=== PATIENT | male | born 1955 | race Caucasian/White ===

== ENCOUNTER 2023-12-08 17:32 | Emergency (ER) | payer MEDICARE, SELFPAY ==
[2023-12-08 17:37] VITALS: BP 185/118
[2023-12-08 18:01] LABS: % Basophils 0.6 % (0-2); % Eosinophils 1.4 % (0-6); % Immature Granulocytes 0.4 % (0-0.5); % Lymphocytes 25.2 % (20.5-51.1); % Neutrophils 64.4 % (42.2-75.2); Absolute Eosinophils 0.1 10^3/uL (0-0.7); Absolute Lymphocytes 1.2 10^3/uL (1.2-3.4); Absolute Monocytes 0.4 10^3/uL (0.1-0.6); Absolute Neutrophils 3.1 10^3/uL (1.4-6.5); Hemoglobin 12.7 g/dL (13.0-18.0); Mean Corp Hgb Conc. 35.3 g/dL (33.0-37.0); Mean Corpuscular Hgb 29.7 pg (27.0-31.0); Mean Corpuscular Volume 84.1 fL (80.0-94.0); Mean Platelet Volume 10.7 fL (7.4-10.4); Nucleated Red Blood Cells % 0 % (-); Platelet Count 247 10^3/uL (130-400); Red Blood Cell Count 4.28 10^6/uL (4.70-6.10); Red Cell Dist. Width 12.6 % (11.5-14.5); White Blood Cell Count 4.9 10^3/uL (4.8-10.8)
[2023-12-08 18:18] LABS: ALT (SGPT) 17 U/L (0-50); AST (SGOT) 27 U/L (17-59); Albumin 4.1 g/dl (3.5-5.0); Alkaline Phosphatase 53 U/L (38-126); Blood Urea Nitrogen 21 mg/dl (9-20); Calcium 9.6 mg/dl (8.4-10.2); Carbon Dioxide 25 mmol/L (22-30); Chloride 103 mmol/L (98-107); Glucose 134 mg/dl (70-99); Potassium 3.6 mmol/L (3.5-5.1); Sodium 139 mmol/L (135-145); Total Bilirubin 0.8 mg/dl (0.2-1.3); Total Protein 6.8 g/dl (6.3-8.2); eGFR > 60.00
[2023-12-08 18:21] VITALS: BP 168/98
[2023-12-08 18:30] VITALS: BP 179/94
--- NOTE | 2023-12-08 18:46 | ED.GENMED ---
History of Present Illness
<Miguelina Butcher PA-C - Last Filed: 12/09/23 11:09>
General
Chief Complaint: Dizziness
Source: patient
Exam Limitations: none
Time Seen by Provider: 12/08/23 18:40
Nursing documentation reviewed up to this point in time: agreed with
Travel History
Have you had any contact with someone who has COVID-19?: No
Do you have any symptoms of coronavirus? Fever > 100 degrees, chills, cough, shortness of breath, sore throat, loss of taste or smell, muscle aches, or headache?: No
History of Present Illness
History of Present Illness:
This is a 68-year-old male with a past medical history of hypertension, CAD, hyperlipidemia, opioid use disorder, who is presenting to the emergency department with complaints of dizziness and hypertension for the past 2 days. Patient states that
yesterday, he was standing in his house when he was hit with sudden episode of dizziness and had to sit down. Patient states that he has had similar episodes in the past, and his PCP is aware of this issue, however he has not had an episode this
severe before. He states that his blood pressures were low a few weeks ago, and so his PCP decreased his amlodipine to 5 mg once daily instead of 10 mg once daily. This did not relieve his symptoms. Patient states that he felt this way and
subsequently checked his blood pressure which was in the 200s. He states that he checked it multiple times today and is remaining 200 systolically. Patient describes this sensation as trouble walking, and almost a feeling of dysequilibrium.
Patient denies visual changes, double vision, numbness or tingling other than his chronic cervical radiculopathy on right side, syncopal episodes, nausea or vomiting, chest pain, shortness of breath. He states that his symptoms ultimately resolved
when he remains still for period time.
Past History
<Miguelina Butcher PA-C - Last Filed: 12/09/23 11:09>
Past History
ED Past Medical History: CAD, HTN and Other (chronic pain)
Patient has exhibited threatening behavior?: No
Social History
Tobacco: Non-smoker
Alcohol: Occasional
Drug: None
Personal:
Living: with family
Family History
Family History: Other
Review of Systems
<Miguelina Butcher PA-C - Last Filed: 12/09/23 11:09>
Review of Systems
All Other Systems: ROS reviewed and negative except as documented in HPI and ROS
Phy Exam
<Miguelina Butcher PA-C - Last Filed: 12/09/23 11:09>
Physical Exam
Physical Exam:
Vitals: Patient is HTN
General: Patient is well-appearing, in no acute distress
Skin: Warm and dry, no rashes or lesions
HEENT: No nystagmus, pupils equal round reactive
Cardiac: regular rate and rhythm
Pulm: Normal respiratory effort
Neurological: Patient awake and alert. Cranial nerves II to XII intact. No involuntary movements noted. Strength 5 out of 5 in bilateral upper and lower extremities. Pibwjx-dc-ekgr testing, emnw-ns-feiq testing intact. Gait normal. Negative
pronator drift.
Psychiatric: Good insight and judgment intact. Appropriate behavior.
Course
<Miguelina Butcher PA-C - Last Filed: 12/09/23 11:09>
Orders/Labs/Results
Orders:
Orders
12/08/23 17:40
Electrocardiogram (*1) Urgent
Reason for Study: Vertigo / Dizzy
EKG- Treatment ONCE
12/08/23 17:50
CMP [Comprehensive Metabolic Panel] Urgent
Complete Blood Count/With Diff Urgent
12/08/23 19:35
Amlodipine [Norvasc] 5 mg PO NOW STA
12/08/23 19:45
Terazosin [Hytrin] 5 mg PO NOW STA
12/08/23 19:56
MRI Brain [MR Brain Without Contrast] Urgent
Comment:
Reason For Exam: dysequilibrium
Recent pill cam endoscopy?: No
Abnormal Lab Results
12/08/23
17:50
RBC 4.28 L 10^6/uL
(4.70-6.10)
Hgb 12.7 L g/dL
(13.0-18.0)
Hct 36.0 L %
(39.0-52.0)
MPV 10.7 H fL
(7.4-10.4)
BUN 21 H mg/dl
(9-20)
Glucose 134 H mg/dl
(70-99)
12/08/23 17:50
12/08/23 17:50
Vital Signs
Initial and Last Documented VS:
Initial Vital Signs
Temp Pulse Resp BP Pulse Ox
98.6 F 73 16 185/118 96
12/08/23 17:37 12/08/23 17:37 12/08/23 17:37 12/08/23 17:37 12/08/23 17:37
Last Documented Vital Signs
Temp Pulse Resp BP Pulse Ox
98.6 F 57 16 158/94 97
12/08/23 17:37 12/08/23 20:02 12/08/23 18:21 12/08/23 21:30 12/08/23 18:21
<Christopher Gates MD - Last Filed: 12/08/23 21:50>
Orders/Labs/Results
Orders:
Orders
12/08/23 17:40
Electrocardiogram (*1) Urgent
Reason for Study: Vertigo / Dizzy
EKG- Treatment ONCE
12/08/23 17:50
CMP [Comprehensive Metabolic Panel] Urgent
Complete Blood Count/With Diff Urgent
12/08/23 19:35
Amlodipine [Norvasc] 5 mg PO NOW STA
12/08/23 19:45
Terazosin [Hytrin] 5 mg PO NOW STA
12/08/23 19:56
MRI Brain [MR Brain Without Contrast] Urgent
Comment:
Reason For Exam: dysequilibrium
Recent pill cam endoscopy?: No
Abnormal Lab Results
12/08/23
17:50
RBC 4.28 L 10^6/uL
(4.70-6.10)
Hgb 12.7 L g/dL
(13.0-18.0)
Hct 36.0 L %
(39.0-52.0)
MPV 10.7 H fL
(7.4-10.4)
BUN 21 H mg/dl
(9-20)
Glucose 134 H mg/dl
(70-99)
12/08/23 17:50
12/08/23 17:50
Vital Signs
Initial and Last Documented VS:
Initial Vital Signs
Temp Pulse Resp BP Pulse Ox
98.6 F 73 16 185/118 96
12/08/23 17:37 12/08/23 17:37 12/08/23 17:37 12/08/23 17:37 12/08/23 17:37
Last Documented Vital Signs
Temp Pulse Resp BP Pulse Ox
98.6 F 57 16 158/94 97
12/08/23 17:37 12/08/23 20:02 12/08/23 18:21 12/08/23 21:30 12/08/23 18:21
Latonialt;Miguelina Butcher PA-C - Last Filed: 12/09/23 11:09>
MDM/Problems Addressed
Differential Diagnosis Includes:
Differentials include BPPV, posterior circulation stroke, parkinsonian disorder,, functional neurologic disorder, electrolyte derangement, hypoglycemia, multiple sclerosis
MDM/Problems Addressed:
dizziness
Chronic conditions affecting care: HTN, CAD and Arrhythmia
Acute Exacerbation and/or Progression of Chronic Illness: HTN
<Miguelina Butcher PA-C - Last Filed: 12/09/23 11:09>
*Pulse Oximetry
Patient hypoxic: no
*Critical Care Note
Total Time (30-74mins, 75-104mins- exclusive of procedures): Not Applicable
Data Reviewed
Review of Other/Old Records Reveals: Records (Reviewed echocardiogram from 10/09/2023 with an EF of 57%, reviewed ER physician documentation from 08/08/2021, reviewed ER physician documentation from 05/29/2020)
Source: patient
Further Testing Considered But Not Given:
Dr. Gates spoke to cardiology, will obtain plain brain MRI
<Miguelina Butcher PA-C - Last Filed: 12/09/23 11:09>
Patient Management
Escalation/DeEscalation of care consider admission/obs:
68-year-old male with past medical history of CAD, hypertension, hyperlipidemia Emergency Department today with dizziness x 2 days. He has had multiple episodes of this in the past. His vitals demonstrate hypertension. He did not take his
nighttime blood pressure medications. His neurological exam is unremarkable. We will give him his nighttime medications, and obtain brain MRI. Will transfer care to Dr. Gates, please see attending note.
<Christopher Gates MD - Last Filed: 12/08/23 21:50>
Update Note
Update Note:
Blood pressure 158/94. Medically stable and nontoxic. Discharged to follow-up.
ED Attending Note
<Miguelina Butcher PA-C - Last Filed: 12/09/23 11:09>
-
Portions of this chart may have been created with voice recognition software.� Occasional wrong word or��sound alike� substitutions may have occurred due to the inherent limitations of voice recognition software.
<Christopher Gates MD - Last Filed: 12/08/23 21:50>
ED Attending Note
Patient seen and examined by attending physician: Yes
I performed the substantive portion of visit, reviewed & personally made and approve the management plan that is documented in note by myself or ZABRINA.: Yes
ED Attending Note:
68-year-old male complaining of dizziness. On or off for months. Seen by the primary physician who lowered his amlodipine dose. No chest pain shortness of breath headaches or other neurologic symptoms.
Worried today because his blood pressure was elevated.
GENERAL: Alert and oriented in no apparent distress
EYE: Orbits normal.
NECK: Supple
CARDIAC: Regular rate and rhythm without any obvious murmurs.
LUNGS: Clear breath sounds,normal
ABDOMEN: Soft, without focal tenderness or distention
NEUROLOGICAL: Alert and oriented , speech normal. Cranial nerves II through XII intact. Tnqfji-kp-[id number] normal. Gait normal. Negative Romberg.
SKIN: Warm and dry
PSYCH: Normal and appropriate interaction.
Patient was not orthostatic. From a hypertension standpoint he probably should stay on his 10 mg dose of amlodipine. Highly doubt acute CVA. He said the symptoms on or off for months. Neurologic exam is normal.
Discharge Plan
Departure
Patient Disposition: Home (Routine Discharge)
Date of Disposition: 12/08/23
Time of Disposition: 21:49
Patient with high blood pressure during this ER visit?: Yes
Discharge Problem:
Dizziness
Instructions: Dizziness, Nonvertigo, (DC), BLOOD PRESSURE
Prescriptions:
No Action
lisinopril 30 MG tablet
20 mg PO DAILY
aspirin 325 MG tablet
81 mg PO DAILY
mwjnnnnhqaez-bedhwpkt-vlnojc [Centrum Silver] 1 EACH tablet
1 tab PO DAILY
Amlodipine
10 mg .Route DAILY
pantoprazole 40 MG tablet,delayed release (DR/EC)
40 mg PO DAILY
fenofibrate micronized 130 MG capsule
135 mg PO DAILY
quetiapine 400 MG tablet extended release 24 hr
400 mg PO DAILY
Inderal (Regular Release): Mg
40 mg .Route DAILY
Metformin HCl
500 mg .Route DAILY
Rosuvastatin Calcium
40 mg .Route DAILY
Terazosin
5 mg .Route DAILY
Wellbutrin Regular Release:
200 mg .Route DAILY
buprenorphine HCl 8 MG tablet, sublingual
8 mg sublingual DAILY 4 Days Qty: 8 0RF
Rx Instructions:
Take one Tab daily. If needed, can take 2 Tabs
buprenorphine HCl 8 MG tablet, sublingual
16 mg sublingual DAILY Qty: 20 0RF
Referrals:
Cornelia Shaffer MD [Family Provider] - Follow up in 2-3 days
Yaron Tyler MD [Active] - Next open appointment
Activity Restrictions/Additional Instructions:
As discussed, to consider going back to your higher dose of amlodipine
Interventions
Interventions:
*Risk Screen - Suicide Last Done: 12/08/23 18:20
*General Assessment Last Done: 12/08/23 17:37
*Neglect/Abuse Screening Last Done: 12/08/23 18:20
ED- Fall Risk Assessment Last Done: 12/08/23 21:55
*ED COVID-19 Vaccine History Last Done: 12/08/23 17:37
*Nursing Disposition Last Done: 12/08/23 21:55
ED- Neurological Assessment Last Done: 12/08/23 18:20
ED- Cardiac Assessment Last Done: 12/08/23 21:55
Discharge Date and Time
Discharge Date/Time: 12/08/23 21:56
[2023-12-08] MEDS: NORVASC 5 MG PO (20:02)
[2023-12-08] MEDS: HYTRIN 5 MG PO (20:02)
[2023-12-08 21:30] VITALS: BP 158/94
== END 2023-12-08 21:56 | disposition home or self-care (01) ==
LOC: EMR 17:32
PROVIDERS: Emergency Medicine; EMERGENCY PHYSICIAN Emergency Medicine; FAMILY PHYSICIAN Internal Medicine
DX: R42 Dizziness and giddiness (principal); R26.2 Difficulty in walking, not elsewhere classified; I10 Essential (primary) hypertension; I25.10 Atherosclerotic heart disease of native coronary artery without angina pectoris; E78.5 Hyperlipidemia, unspecified
CPT/HCPCS: 99285; 70551; 80053; 85025; 93005

== ENCOUNTER 2024-06-30 10:41 | Inpatient (IN) | payer MEDICARE, SELFPAY ==
[2024-06-30] VITALS (21 sets, daily range): BP systolic 145–182; BP diastolic 85–106; BMI 24.0
[2024-06-30] MEDS: SKELAXIN 800 MG PO ×2 (11:11→18:02)
[2024-06-30] MEDS: CELEBREX 200 MG PO (11:12)
[2024-06-30] MEDS: TYLENOL 1000 MG PO ×2 (11:12→17:15)
[2024-06-30] MEDS: LYRICA 150 MG PO (11:12)
[2024-06-30] MEDS: NORMOSOL-R/PLASMALYTE-A 1000 IV ×2 (11:14→16:57)
[2024-06-30 13:16] LABS: Glycohemoglobin (HgbA1c) 5.7 % (4.0-5.6)
--- NOTE | 2024-06-30 13:39 | W.DS.TRANS ---
DC Summary - Clubhouse Attendant
-
Discharge Instructions:
Sleep Apnea Risk Intermediate
Discharge Diagnosis/Procedures C7-T1 robyn-lami
Diet As tolerated
Activity No strenuous activity
Driving Restrictions No driving
Instructions:
Stand-Alone Forms: Faruqi Cervical Spine DC Instr
Faruqi Lumbar Spine DC Instr
Changes to Home Medications: Yes
Discharge Medications:
DC Medications w/original date entered in [employer]
pantoprazole 40 mg tablet,delayed release 40 mg PO DAILY 08/02/21
amlodipine 10 mg tablet 10 mg PO DAILY 06/25/24
aspirin 81 mg capsule 81 mg PO DAILY 06/25/24
buprenorphine 12 mg-naloxone 3 mg sublingual film (Suboxone) 1 film buccal Q24H 06/25/24
bupropion HCl 200 mg tablet,12 hr sustained-release (Wellbutrin SR) 200 mg PO Q12H 06/25/24
fenofibric acid (choline) 135 mg capsule,delayed release 135 mg PO DAILY 06/25/24
lisinopril 40 mg tablet 40 mg PO DAILY 06/25/24
multivitamin 1 tab PO DAILY 06/25/24
propranolol 160 mg capsule,24 hr,extended release 160 mg PO DAILY 06/25/24
quetiapine 400 mg tablet (Seroquel) 400 mg PO HS 06/25/24
rosuvastatin 40 mg tablet 40 mg PO DAILY 06/25/24
terazosin 5 mg capsule 5 mg PO HS 06/25/24
Saccharomyces boulardii 250 mg capsule (Florastor) 250 mg PO BID #1 cap 06/30/24
acetaminophen 325 mg capsule (Tylenol) 650 mg (2 x 325 mg) PO QID #2 caps 06/30/24
cephalexin 500 mg capsule 500 mg PO QID infection prevention #20 caps 06/30/24
dexamethasone 4 mg tablet 4 mg PO BID inflammation #6 tabs 06/30/24
docusate sodium 100 mg capsule (Colace) 100 mg PO BID stool softner #1 cap 06/30/24
gabapentin 300 mg capsule 300 mg PO HS sleep/pain #10 caps 06/30/24
hydromorphone 2 mg tablet 2 - 4 mg (1 - 2 x 2 mg) PO Q6H PRN 1 tab moderate pain, 2 severe #10 tabs 06/30/24
magnesium hydroxide 400 mg/5 mL oral suspension (Milk of Magnesia) 30 ml PO HS PRN Constipation #1 mL 06/30/24
sennosides 8.6 mg tablet (Senokot) 17.2 mg (2 x 8.6 mg) PO BID laxative #2 tabs 06/30/24
Home Medication Changes
cephalexin 500 mg capsule 500 mg PO QID� infection prevention #20 caps 06/30/24�
dexamethasone 4 mg tablet 4 mg PO BID inflammation #6 tabs 06/30/24�
gabapentin 300 mg capsule 300 mg PO HS sleep/pain #10 caps 06/30/24�
hydromorphone 2 mg tablet 2 - 4 mg (1 - 2 x 2 mg) PO Q6H PRN 1 tab moderate pain, 2 severe #10 tabs 06/30/24�
Pending Results: No
[2024-06-30] MEDS: DILAUDID 0.5 MG IV ×5 (16:00→16:33)
--- NOTE | 2024-06-30 17:49 | PTCARENOTE ---
Addendum [id number] Upon arrival to PACU anoop reported 'severe pain' #10/10 .upon awakening. Was medicated as ordered and pain still not improving (takes subutex @ home). Reached out to Dr Charlton and will cont with PACU protocol. RN spoke with
pharmacy and had medication times readjusted, allowing scheduled pain meds to be given in conjunction with PACU orders. Patient consistently reports pain now #9/10 but resting comfortably in bed. Patient reports this is 'barely tolerable'. [place]
text to Eun Salas and we will give skelaxin/lyrica early as well as give dilaudid 4 MG. Report given to EMERGENCY VETERINARIAN and I called report to floor RN ZHANE.
[2024-06-30] MEDS: DILAUDID PO (17:55)
[2024-06-30] MEDS: DILAUDID 4 MG PO (18:00)
[2024-06-30] MEDS: LYRICA 75 MG PO (18:01)
--- NOTE | 2024-06-30 18:24 | PTCARENOTE ---
one time meds given to pt as ordered, pt unable to void, bladder not distended, pt has no urge to void, sent to floor
--- NOTE | 2024-06-30 18:41 | PTCARENOTE ---
Received patient from PACU via bed in stable condition. Cervical collar in place. Dressing to upper back/lower neck C/D/I. Bp elevated and has been in PACU. Patient placed on tele. Sinus tach. Will continue to monitor. Patient DTV.
[2024-06-30] MEDS: ANCEF 5 IV (20:56)
[2024-06-30] MEDS: FLUSH (NSS) 3 FLUSH IV (20:57)
[2024-06-30] MEDS: DECADRON 6 MG IV (20:58)
[2024-06-30] MEDS: COLACE 100 MG PO (21:01)
[2024-06-30] MEDS: WELLBUTRIN SR (12 hour sustained release) 200 MG PO (21:01)
[2024-06-30] MEDS: SENOKOT 17.2 MG PO (21:01)
[2024-06-30] MEDS: DILAUDID 2 MG PO (22:08)
[2024-06-30] MEDS: HYTRIN 5 MG PO (22:08)
[2024-06-30] MEDS: SEROQUEL 400 MG PO (22:09)
[2024-07-01] MEDS: TYLENOL PO (00:29)
[2024-07-01] MEDS: NORMOSOL-R/PLASMALYTE-A 1000 IV (02:12)
[2024-07-01 03:00] VITALS: BP 160/90
[2024-07-01] MEDS: DECADRON 6 MG IV ×2 (03:49→11:31)
[2024-07-01] MEDS: ANCEF 5 IV (03:49)
[2024-07-01] MEDS: FLUSH (NSS) 3 FLUSH IV (03:50)
[2024-07-01] MEDS: DILAUDID 4 MG PO ×2 (04:03→11:31)
[2024-07-01] MEDS: TYLENOL 1000 MG PO ×2 (06:27→11:30)
[2024-07-01 06:28] LABS: Hematocrit 31.8 % (39.0-52.0); Hemoglobin 11.1 g/dL (13.0-18.0)
[2024-07-01 06:49] LABS: Blood Urea Nitrogen 15 mg/dl (9-20); Calcium 9.3 mg/dl (8.4-10.2); Carbon Dioxide 24 mmol/L (22-30); Chloride 107 mmol/L (98-107); Estimated Creatinine Clearance 107 ml/min; Glucose 178 mg/dl (70-99); Potassium 3.8 mmol/L (3.5-5.1); Sodium 142 mmol/L (135-145); eGFR > 60.00
[2024-07-01 07:00] VITALS: BP 161/98
--- NOTE | 2024-07-01 07:59 | W.DS.TRANS ---
DC Summary - Painter Hand
-
Discharge Instructions:
Sleep Apnea Risk Intermediate
Discharge Diagnosis/Procedures C7-T1 robyn-lami
Diet As tolerated
Activity No strenuous activity
Driving Restrictions No driving
Instructions:
Stand-Alone Forms: Faruqi Cervical Spine DC Instr
Faruqi Lumbar Spine DC Instr
Changes to Home Medications: No
Discharge Medications:
DC Medications w/original date entered in [employer]
pantoprazole 40 mg tablet,delayed release 40 mg PO DAILY 08/02/21
amlodipine 10 mg tablet 10 mg PO DAILY 06/25/24
aspirin 81 mg capsule 81 mg PO DAILY 06/25/24
buprenorphine 12 mg-naloxone 3 mg sublingual film (Suboxone) 1 film buccal Q24H 06/25/24
bupropion HCl 200 mg tablet,12 hr sustained-release (Wellbutrin SR) 200 mg PO Q12H 06/25/24
fenofibric acid (choline) 135 mg capsule,delayed release 135 mg PO DAILY 06/25/24
lisinopril 40 mg tablet 40 mg PO DAILY 06/25/24
multivitamin 1 tab PO DAILY 06/25/24
propranolol 160 mg capsule,24 hr,extended release 160 mg PO DAILY 06/25/24
quetiapine 400 mg tablet (Seroquel) 400 mg PO HS 06/25/24
rosuvastatin 40 mg tablet 40 mg PO DAILY 06/25/24
terazosin 5 mg capsule 5 mg PO HS 06/25/24
Saccharomyces boulardii 250 mg capsule (Florastor) 250 mg PO BID #1 cap 06/30/24
acetaminophen 325 mg capsule (Tylenol) 650 mg (2 x 325 mg) PO QID #2 caps 06/30/24
cephalexin 500 mg capsule 500 mg PO QID infection prevention #20 caps 06/30/24
dexamethasone 4 mg tablet 4 mg PO BID inflammation #6 tabs 06/30/24
docusate sodium 100 mg capsule (Colace) 100 mg PO BID stool softner #1 cap 06/30/24
gabapentin 300 mg capsule 300 mg PO HS sleep/pain #10 caps 06/30/24
hydromorphone 2 mg tablet 2 - 4 mg (1 - 2 x 2 mg) PO Q6H PRN 1 tab moderate pain, 2 severe #10 tabs 06/30/24
magnesium hydroxide 400 mg/5 mL oral suspension (Milk of Magnesia) 30 ml PO HS PRN Constipation #1 mL 06/30/24
sennosides 8.6 mg tablet (Senokot) 17.2 mg (2 x 8.6 mg) PO BID laxative #2 tabs 06/30/24
Home Medication Changes
Pending Results: No
--- NOTE | 2024-07-01 07:59 | W.PN.SP ---
Today's Communication / Plan
-
s/p lami fusion
Check Path
D/c
Subjective / Objective
Subjective Data
PT doin well
Neck pain
NO increase in weakness
Objective Data
Vital Signs
Temp Pulse Resp BP Pulse Ox
98.2 F 102 16 161/98 98
07/01/24 07:00 07/01/24 07:00 07/01/24 07:00 07/01/24 07:00 07/01/24 07:00
Intake and Output
06/30/24 07/01/24 07/02/24
06:59 06:59 06:59
Intake Total 460 / 460
Output Total 700 / 700
Balance -240 / -240
Intake:
Oral fluids 60 / 60
IV fluids (Total) 400 / 400
Normosol 400 / 400
Output:
Urine, Voided 700 / 700
Other:
Number of approximated MODERATE 1
amounts of urine
Number of approximated LARGE 1
amounts of urine
Lab Data
07/01/24 06:10
07/01/24 06:10
Physical Exam
-
Stable Right UE
[2024-07-01] MEDS: COLACE 100 MG PO (08:25)
[2024-07-01] MEDS: CRESTOR 40 MG PO (08:26)
[2024-07-01] MEDS: DILAUDID 2 MG PO (08:26)
[2024-07-01] MEDS: INDERAL LA 160 MG PO (08:26)
[2024-07-01] MEDS: LYRICA 75 MG PO (08:27)
[2024-07-01] MEDS: PROTONIX 40 MG PO (08:27)
[2024-07-01] MEDS: SKELAXIN 800 MG PO (08:28)
[2024-07-01] MEDS: SENOKOT 17.2 MG PO (08:28)
[2024-07-01] MEDS: WELLBUTRIN SR (12 hour sustained release) 200 MG PO (08:28)
[2024-07-01 11:00] VITALS: BP 151/79
--- NOTE | 2024-07-01 11:10 | W.PN.ORTHO ---
Today's Communication / Plan
-
d/c
Assessment
.
Distal Motor Intact: Yes
Dressing:
Clean, dry and intact.
Plan
.
Surgery / Date: R C7-T1 hemilami cyst excision psf Dr Maldonado 07/01/24
Activity:
Out of bed.
PT/OT
Discharge Plan: Home w/ Outpatient PT
Subjective
.
.:
Patient resting comfortably.
Vital Signs and Labs
.
Vital Signs and Labs:
Lab Results
07/01/24 06:10
07/01/24 06:10
Temp Pulse Resp BP Pulse Ox
98.2 F 102 16 161/98 98
07/01/24 07:00 07/01/24 08:26 07/01/24 07:00 07/01/24 08:26 07/01/24 07:00
Physical Exam
-
HEENT: No pallor, cyanosis, or jaundice. Throat clear.
NECK: Supple. No JVD.
RESPIRATORY: Lungs clear to auscultation.
CVS: S1, S2 normal. RRR.� No murmur, rub or gallop.
ABDOMEN: Soft, non-tender. No distension. BS+/normal.
EXTREMITIES: strength equal, no calf pain with palpation
AUTOMOTIVE GENERAL SALES MANAGER: AOx3. No focal deficits. senior interaction designer grossly intact
[2024-07-01] MEDS: FLUSH (NSS) 2 FLUSH IV (11:32)
[2024-07-01] MEDS: NORMOSOL-R/PLASMALYTE-A IV (12:46)
--- NOTE | 2024-07-01 14:39 | CM ---
met with patient at bedside.patient lives with in house with no laurie,his bed and bath is on the frist level.he amb i and is I with his adl.
pcp is dr yanet daniel and he uses [facility] in [place].he has never had a vn or been to ip rehab.p patoient i
patient is sp c7-t1 robyn lami.he has a cervical collar placed.he is stable for dc home with op physical therapy.
== END 2024-07-01 13:01 | disposition home or self-care (01) | DRG 472 ==
LOC: 2 SOUTH 10:41
PROVIDERS: Physician Assistant Medical; ADMITTING PHYSICIAN Orthopaedic Surgery Orthopaedic Surgery of the Spine
PROC: 0RG40K1 Fusion of Cervicothoracic Vertebral Joint with Nonautologous Tissue Substitute, Posterior Approach, Posterior Column, Open Approach (ICD-10-PCS; 2024-06-30)
PROC: 01N10ZZ Release Cervical Nerve, Open Approach (ICD-10-PCS; 2024-06-30)
DX: M48.03 Spinal stenosis, cervicothoracic region (principal); F32.0 Major depressive disorder, single episode, mild; M71.38 Other bursal cyst, other site; M54.12 Radiculopathy, cervical region; I10 Essential (primary) hypertension; I25.10 Atherosclerotic heart disease of native coronary artery without angina pectoris; I25.5 Ischemic cardiomyopathy; E29.1 Testicular hypofunction; R73.03 Prediabetes; G25.0 Essential tremor; F11.90 Opioid use, unspecified, uncomplicated; I25.2 Old myocardial infarction; Z79.82 Long term (current) use of aspirin; Z79.899 Other long term (current) drug therapy; Z95.5 Presence of coronary angioplasty implant and graft
CPT/HCPCS: 88304; 88311; 72020; 80048; 83036; 85014; 85018; 86850; 86900; 86901; 87070; 97162; 97166; 97535; C1713

== ENCOUNTER 2024-09-12 14:27 | Emergency (ER) | payer MEDICARE, SELFPAY ==
[2024-09-12 14:30] VITALS: BP 172/109
--- NOTE | 2024-09-12 14:54 | ED.GENMED ---
History of Present Illness
General
Chief Complaint: Dehydration Symptoms
Source: patient
Exam Limitations: none
Time Seen by Provider: 09/12/24 14:53
Nursing documentation reviewed up to this point in time: agreed with
History of Present Illness
History of Present Illness:
69-year-old male with a past medical history of opioid use disorder, CAD, hypertension, hyperlipidemia presents to the emergency department today with concerns of racing thoughts as well as dehydration. This has been going on for the past week.
Patient reports that a week ago, his left him and since then he has had persistent anxiety, palpitations, racing thoughts. Patient states that his appetite has decreased and he went to urgent care for the symptoms today and was told that he
appeared very dehydrated and was advised to report to the emergency department. Patient denies abdominal pain, nausea, vomiting. Patient denies diarrhea, constipation. Patient denies any suicidal ideation or any thoughts of harming self. Patient
denies any homicidal ideation. Patient denies visual auditory hallucinations. Patient does have a history of depression does take Wellbutrin.
Past History
Past History
ED Past Medical History: CAD, HTN and Other (chronic pain)
Patient has exhibited threatening behavior?: No
Social History
Tobacco: Non-smoker
Alcohol: Occasional
Drug: None
Personal:
Living: with family
Family History
Family History: Other
Review of Systems
Review of Systems
All Other Systems: ROS reviewed and negative except as documented in HPI and ROS
Phy Exam
Physical Exam
Physical Exam:
General: Patient is well appearing and in no acute distress; non-toxic
Skin: Warm and dry, no rashes or lesions
Head: Normocephalic, atraumatic
Eyes: Sclera non-icteric. EOMs intact.
Mouth: Mucous membranes are moist
Cardiac: Regular rate and rhythm, no murmur
Pulm: Normal respiratory effort, no wheezes, rales, rhonchi
Abdomen: No abdominal tenderness to palpation
Neuro: CN II-XII intact, no focal neurologic deficits.
Psychiatric: Appropriate mood and affect. Patient denies SI, HI, visual auditory hallucinations.
Course
Orders/Labs/Results
Orders:
Orders
09/12/24 15:22
Electrocardiogram (*1) Urgent
Reason for Study: Palpitations
EKG- Treatment ONCE
09/12/24 15:31
Complete Blood Count/With Diff Urgent
Comprehensive Metabolic Panel Urgent
09/12/24 16:09
HydrOXYZINE [Atarax] 25 mg PO NOW STA
Lorazepam [Ativan] 1 mg PO NOW STA
09/12/24 17:12
Lorazepam [Ativan] 0.5 mg PO NOW STA
Abnormal Lab Results
09/12/24
15:31
RBC 4.38 L 10^6/uL
(4.70-6.10)
Hgb 12.8 L g/dL
(13.0-18.0)
Hct 37.3 L %
(39.0-52.0)
Absolute Lymphs (auto) 1.0 L 10^3/uL
(1.2-3.4)
Neutrophils % 75.4 H %
(42.2-75.2)
Lymphocytes % 15.8 L %
(20.5-51.1)
Potassium 3.2 L mmol/L
(3.5-5.1)
BUN 22 H mg/dl
(9-20)
Glucose 117 H mg/dl
(70-99)
09/12/24 15:31
09/12/24 15:31
Vital Signs
Initial and Last Documented VS:
Initial Vital Signs
Temp Pulse Resp BP Pulse Ox
97.8 F 85 16 172/109 86
09/12/24 14:30 09/12/24 14:30 09/12/24 14:30 09/12/24 14:30 09/12/24 14:30
Last Documented Vital Signs
Temp Pulse Resp BP Pulse Ox
97.8 F 63 13 177/96 93
09/12/24 14:30 09/12/24 17:00 09/12/24 17:00 09/12/24 17:00 09/12/24 17:00
MDM/Problems Addressed
Differential Diagnosis Includes:
ddx include RENÉE, electrolyte derangement, depressive episode, panic attack
MDM/Problems Addressed:
69-year-old male with a past medical history of opioid use disorder, CAD, hypertension, hyperlipidemia presents to the emergency department today with concerns of racing thoughts as well as dehydration. This has been going on for the past week
since his left him. Patient has no abdominal pain, nausea, vomiting, diarrhea. He has no suicidal homicidal ideation. On exam, he is well-appearing, no acute distress, his heart is regular rate and rhythm. His EKG shows no arrhythmia that
would make me concerned about his complaint of palpitations. His CBC and CMP are unremarkable. Discussed findings with patient. Patient is okay with not getting IV fluids at this time. Patient states that because of a problem with his , he
is very anxious. Did offer crisis services to patient, patient declining at this time, however he was very anxious in the emergency department and he was given Ativan and hydroxyzine in the emergency department, patient states that he will get a
ride home considering he was given these medications. He found him normal relief with these medications. Did discuss follow-up with PCP regarding further management of the his anxiety.
Chronic conditions affecting care:
n/a
Acute Exacerbation and/or Progression of Chronic Illness:
n/a
*Pulse Oximetry
Patient hypoxic: no
*EKG
Interpreted by ED Provider?: Yes
Interpretation: normal
Heart Rate: 64
Rate: normal
Rhythm: sinus
Interval: normal interval
*Critical Care Note
Total Time (30-74mins, 75-104mins- exclusive of procedures): Not Applicable
Data Reviewed
Review of Other/Old Records Reveals: Records (Reviewed discharge summary from 07/01/2024, patient admitted for cervical myelopathy)
Prescriptions/Medications Considered But Not Given:
n/a
Further Testing Considered But Not Given:
n/a
Update Note
Update Note:
4:35 pm-- Patient noes minimal improvement with ativan and hydro
ED Attending Note
-
Portions of this chart may have been created with voice recognition software.� Occasional wrong word or��sound alike� substitutions may have occurred due to the inherent limitations of voice recognition software.
Discharge Plan
Departure
Patient Disposition: Home (Routine Discharge)
Date of Disposition: 09/12/24
Time of Disposition: 16:51
Patient with high blood pressure during this ER visit?: Yes
Condition: Good
Discharge Problem:
Decrease in appetite, Anxiety
Instructions: Anxiety, Adult ED, BLOOD PRESSURE
Prescriptions:
No Action
pantoprazole 40 MG tablet,delayed release (DR/EC)
40 mg PO DAILY
terazosin 5 mg Capsule
5 mg PO HS
propranolol 160 mg Capsule,Extended Release 24 Hr
160 mg PO DAILY
amlodipine 10 mg Tablet
10 mg PO DAILY
lisinopril 40 mg Tablet
40 mg PO DAILY
bupropion HCl [Wellbutrin SR] 200 mg Tablet Sustained-Release 12 Hr
200 mg PO Q12H
rosuvastatin 40 mg Tablet
40 mg PO DAILY
quetiapine [Seroquel] 400 mg Tablet
400 mg PO HS
fenofibric acid (choline) 135 mg Capsule,Delayed Release(Dr/Ec)
135 mg PO DAILY
aspirin 81 mg Capsule
81 mg PO DAILY
multivitamin Tablet
1 tab PO DAILY
buprenorphine-naloxone [Suboxone] 12-3 mg Film
1 film BUCCAL Q24H
cephalexin 500 mg capsule
500 mg PO QID Qty: 20 0RF
docusate sodium [Colace] 100 mg capsule
100 mg PO BID Qty: 1 0RF
dexamethasone 4 mg tablet
4 mg PO BID Qty: 6 0RF
Rx Instructions:
take with food
post-op use only
Saccharomyces boulardii [Florastor] 250 mg capsule
250 mg PO BID Qty: 1 0RF
hydromorphone 2 mg tablet
2 - 4 mg PO Q6H PRN (Reason: 1 tab moderate pain, 2 severe) Qty: 10 0RF
Rx Instructions:
Dx orthopedic surgery
Ongoing therapy
gabapentin 300 mg capsule
300 mg PO HS Qty: 10 0RF
magnesium hydroxide [Milk of Magnesia] 400 mg/5 mL suspension
30 ml PO HS PRN (Reason: Constipation) Qty: 1 0RF
sennosides [Senokot] 8.6 mg tablet
17.2 mg PO BID Qty: 2 0RF
acetaminophen [Tylenol] 325 mg capsule
650 mg PO QID Qty: 2 0RF
Referrals:
Enzo Cheng MD [Active] - Call in 1-3 days for appt
Tucker Cedillo MD [Family Provider] -
Activity Restrictions/Additional Instructions:
Your potassium was slightly low today at 3.2, please have this rechecked with your primary when you see them in follow up.
Please return to the emergency department should you experience in tractable nausea or vomiting, fevers or chills, chest pain, shortness of breath, suicidal thoughts, syncopal episodes, or any other signs or symptoms worrisome to you.
Please return to the emergency department should you seek help from crisis.
Please follow up with your PCP should you have ongoing anxious thoughts. We have also provided referral for psychiatry.
Interventions
Interventions:
*Risk Screen - Suicide Last Done: 09/12/24 14:30
*General Assessment Last Done: 09/12/24 14:30
*Neglect/Abuse Screening Last Done: 09/12/24 14:30
ED- Fall Risk Assessment Last Done: 09/12/24 15:33
*ED COVID-19 Vaccine History Last Done: 09/12/24 15:33
*Nursing Disposition Last Done: 09/12/24 17:33
ED- Cardiac Assessment Last Done: 09/12/24 15:34
ED- Neurological Assessment Last Done: 09/12/24 15:34
ED- Pulmonary Assessment Last Done: 09/12/24 15:34
Discharge Date and Time
Discharge Date/Time: 09/12/24 17:35
Print Language: INDONESIAN
[2024-09-12 15:27] VITALS: BP 170/102
[2024-09-12 15:33] VITALS: BMI 22.5
[2024-09-12 15:38] LABS: % Basophils 0.5 % (0-2); % Eosinophils 0.2 % (0-6); % Immature Granulocytes 0.5 % (0-0.5); % Lymphocytes 15.8 % (20.5-51.1); % Monocytes 7.6 % (1.7-9.3); % Neutrophils 75.4 % (42.2-75.2); Absolute Monocytes 0.5 10^3/uL (0.1-0.6); Hematocrit 37.3 % (39.0-52.0); Hemoglobin 12.8 g/dL (13.0-18.0); Mean Corp Hgb Conc. 34.3 g/dL (33.0-37.0); Mean Corpuscular Hgb 29.2 pg (27.0-31.0); Mean Corpuscular Volume 85.2 fL (80.0-94.0); Mean Platelet Volume 10.3 fL (7.4-10.4); Nucleated Red Blood Cells % 0 % (-); Platelet Count 243 10^3/uL (130-400); Red Blood Cell Count 4.38 10^6/uL (4.70-6.10); Red Cell Dist. Width 13.2 % (11.5-14.5); White Blood Cell Count 6.6 10^3/uL (4.8-10.8)
[2024-09-12 15:57] LABS: ALT (SGPT) 17 U/L (0-50); AST (SGOT) 26 U/L (17-59); Albumin 4.5 g/dl (3.5-5.0); Alkaline Phosphatase 65 U/L (38-126); Blood Urea Nitrogen 22 mg/dl (9-20); Calcium 9.7 mg/dl (8.4-10.2); Carbon Dioxide 27 mmol/L (22-30); Chloride 103 mmol/L (98-107); Estimated Creatinine Clearance 72 ml/min; Glucose 117 mg/dl (70-99); Potassium 3.2 mmol/L (3.5-5.1); Sodium 141 mmol/L (135-145); Total Bilirubin 0.8 mg/dl (0.2-1.3); Total Protein 7.1 g/dl (6.3-8.2); eGFR > 60.00
[2024-09-12 16:00] VITALS: BP 169/102
[2024-09-12] MEDS: ATIVAN 1 MG PO (16:18)
[2024-09-12] MEDS: ATARAX 25 MG PO (16:18)
[2024-09-12 17:00] VITALS: BP 177/96
[2024-09-12] MEDS: ATIVAN 0.5 MG PO (17:14)
== END 2024-09-12 17:35 | disposition home or self-care (01) ==
LOC: EMR 14:27
PROVIDERS: Physician Assistant; EMERGENCY PHYSICIAN Emergency Medicine; FAMILY PHYSICIAN Internal Medicine
DX: R63.0 Anorexia (principal); F41.8 Other specified anxiety disorders; G89.29 Other chronic pain; E86.0 Dehydration; I25.10 Atherosclerotic heart disease of native coronary artery without angina pectoris; I10 Essential (primary) hypertension; E78.00 Pure hypercholesterolemia, unspecified
CPT/HCPCS: 99283; 80053; 85025; 93005